=== PATIENT | male | born 1980 | race Caucasian/White ===

== ENCOUNTER 2023-11-01 02:30 | Emergency (ER) | payer OTHER, BC ==
[~2023-11-01] VITALS: Ht 167.6 cm; Wt 81.6 kg
[2023-11-01 02:34] VITALS: BP 127/78; PULSE 81; RESP 16; TEMP 98; O2SAT 100
[2023-11-01] MEDS: KETOROLAC 30 MG/ML VIAL IM ONE (03:07)
[2023-11-01] MEDS ORDERED: NAPR-337 PO (03:41)
[2023-11-01] MEDS ORDERED: DIAZ5TAB6 PO (03:41)
[2023-11-01 03:50] VITALS: BP 157/97; PULSE 70; RESP 20; TEMP 97; O2SAT 98
== END 2023-11-01 03:50 | disposition home or self-care (01) ==
LOC: MED 02:30
DX: S39.012A Strain of muscle, fascia and tendon of lower back, initial encounter (principal); Z98.890 Other specified postprocedural states; Z79.899 Other long term (current) drug therapy; V89.2XXA Person injured in unspecified motor-vehicle accident, traffic, initial encounter; Y93.89 Activity, other specified; Y92.410 Unspecified street and highway as the place of occurrence of the external cause; Y99.8 Other external cause status
CPT/HCPCS: 72100; 96372; 99283; J1885